=== PATIENT | male | born 1975 | race Two or more races ===

== ENCOUNTER 2020-10-09 08:13 | Emergency (ER) | payer BC ==
[2020-10-09] MEDS ORDERED: Aspirin 81 MG Tab.Chew PO ONE (08:37)
--- NOTE | 2020-10-09 08:37 | EDM.PDOC ---
ED HPI GENERAL MEDICAL PROBLEM - General Chief Complaint: Chest Pain Stated Complaint: CHEST PAIN Time Seen by Provider: 10/09/20 08:30 Source of Information: Reports: Patient History Limitations: Reports: No Limitations - History of Present Illness INITIAL COMMENTS - FREE TEXT/NARRATIVE: 45-year-old male presents to the ED for evaluation of sudden onset of central chest pain which she describes as a pressure squeezing type discomfort while at work this morning. 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 Nothing too heavy. The cart was quite heavy when he was pushing it. He developed central chest squeezing discomfort at that time which caused him to break out in a significant sweats with mild associated nausea without vomiting. Pain is still present which she rates as 2-3 out of 10 central chest with no radiation. He has no history of coronary artery disease. He does have a history of colon cancer diagnosed in March 2019 requiring I believe right hemicolectomy and a temporary ileostomy right lower quadrant which was reversed within the last 6 months. This was carried out by Dr. Gonzalez surgeon at [facility] in [place]. Patient does take a baby aspirin daily. Last 1 was last evening. He denies any cough or sputum production. No fever or chills. No history of asthma. Does have a history of hypertension takes Micardis once daily Onset: Today, Sudden Onset Date: 10/09/20 Onset Time: 07:30 Duration: Minutes:, Improving Location: Reports: Chest (Central chest squeezing pressure discomfort) Quality: Reports: Ache, Pressure, Other (Patient appreciated slightly worse by deep breathing.). Denies: Sharp, Stabbing Severity: Moderate (Initially reported to be 8-9 out of 10. Currently down to a 2-3 out of 10.) Improves with: Reports: Rest Worsens with: Reports: Other (Breathing seems to make it a bit worse.) Context: Denies: Activity, Exercise, Lifting, Sick Contact, Trauma, Other Associated Symptoms: Reports: Chest Pain, Diaphoresis, Shortness of Breath, Weakness (Or diarrhea pheresis associate with development of the pain.). Denies: Confusion, Cough, cough w sputum (See history of present illness), Fever/Chills, Headaches, Loss of Appetite, Malaise, Nausea/Vomiting, Rash (Mild dyspnea.), Seizure, Syncope Treatments TITLE ASSISTANT: Reports: Other (see below) ( Generalized feeling of weakness) Middle Chest Pain Score (Numeric/FACES): 8 - Related Data Allergies Allergy/AdvReac Type Severity Reaction Status Date / Time No Known Allergies Allergy Verified 10/09/20 08:21 Home Meds: Home Meds Allopurinol [Zyloprim] 300 mg PO DAILY 10/09/20 [History] Telmisartan [Micardis] 40 mg PO DAILY 10/09/20 [History] atorvaSTATin [Lipitor] 20 mg PO BEDTIME 10/09/20 [History] Past Medical History Cardiovascular History: Reports: High Cholesterol, Hypertension Oncologic (Cancer) History: Reports: Colon Social & Family History - Tobacco Use Tobacco Use Status *Q: Never Tobacco User - Recreational Drug Use Recreational Drug Use: No - Living Situation & Occupation Living situation: Reports: Occupation: Employed (Self-employed) ED ROS GENERAL - Review of Systems Review Of Systems: See Below Constitutional: Reports: Weakness. Denies: Fever, Chills, Malaise, Fatigue, Decreased Appetite, Weight Loss HEENT: Reports: No Symptoms Respiratory: Reports: Shortness of Breath. Denies: Wheezing, Pleuritic Chest Pain, Cough, Sputum Cardiovascular: Reports: Chest Pain, Blood Pressure Problem (See history of present illness). Denies: Claudication, Dyspnea on Exertion, Edema, Lightheadedness, Orthopnea, Palpitations Endocrine: Reports: Fatigue GI/Abdominal: Reports: No Symptoms, Diarrhea (Occasional diarrhea since right hemicolectomy has been performed.). 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 No: Carotid Bruit, Lymphadenopathy (L), Lymphadenopathy (R) Respiratory/Chest: Lungs Clear, Normal Breath Sounds, No Accessory Muscle Use, Other (Cannot elicit any chest wall tenderness.) Cardiovascular: Normal Peripheral Pulses ( Port-A-Cath right upper anterior chest with surrounding bruising.), Regular Rate, Rhythm, No Edema, No Gallop, No JVD, No Murmur, No Rub Peripheral Pulses: 3+: Carotid (L), Carotid (R), Posterior Tibial (L), Posterior Tibial (R), Dorsalis Pedis (L), Dorsalis Pedis (R) GI/Abdominal: Normal Bowel Sounds, Soft, Non-Tender, No Organomegaly, No Abnorma l Bruit, No Mass, Pelvis Stable, Other (Evidence of a colostomy right mid abdomen or ileostomy that has been secondarily closed. He has developed some keloid scar in this area.) (Male) Exam: No Hernia Back Exam: Normal Inspection, Full Range of Motion. No: CVA Tenderness (L), CVA Tenderness (R) Extremities: Normal Inspection, Normal Range of Motion, Non-Tender, No Pedal Edema Neurological: Alert, Oriented, CN II-XII Intact, Normal Cognition Psychiatric: Anxious Skin Exam: Intact, Normal Color, No Rash, Cool, Diaphoretic (Mildly diaphoretic) #1 Interpretation EKG Date: 10/09/20 Time: 08:20 Rhythm: Other Rate (Beats/Min): 52 [place]: Normal P-Wave: Present QRS: Other (Early R wave transition consider septal hypertrophy pattern) ST-T: Other (Diffuse early repolarization pattern particularly noted in the precordial leads.) QT: Normal EKG Interpretation Comments: Essentially normal ECG Course - Vital Signs Last Recorded V/S: Last Vital Signs Temp 37.1 C 10/09/20 08:19 Pulse 59 L 10/09/20 10:44 Resp 16 10/09/20 10:44 BP 119/73 10/09/20 10:44 Pulse Ox 98 10/09/20 10:44 - Orders/Labs/Meds Orders: Active Orders 24 hr Category Date Time Status Chest 1V Frontal [CR] Stat Exams 10/09/20 08:26 Taken Dextrose 5%-0.9% NaCl [Dextrose 5%-Normal Saline] 1,000 Med 10/09/20 08:45 Active ml IV ASDIRECTED Nitroglycerin/D5W [Nitroglycerin 25 MG/D5W 250 ML] Med 10/09/20 08:45 Active 25 mg in 250 ml IV TITRATE EKG 12 Lead [EK] Stat Ther 10/09/20 08:26 Ordered EKG 12 Lead [EK] Stat Ther 10/09/20 09:11 Ordered EKG 12 Lead [EK] Stat Ther 10/09/20 10:40 Ordered Medication Orders Dextrose/Sodium Chloride (Dextrose 5%-Normal Saline) 1,000 mls @ 100 mls/hr IV ASDIRECTED SURESH Last Admin: 10/09/20 08:59 Dose: 100 mls/hr Documented by: GE Nitroglycerin/Dextrose (Nitroglycerin 25 Mg/D5w 250 Ml) 25 mg in 250 mls @ 6 mls/hr IV TITRATE SURESH; Protocol Last Admin: 10/09/20 09:01 Dose: 10 mcg/min, 6 mls/hr Documented by: GE Labs: Laboratory Tests 10/09/20 10/09/20 10/09/20 Range/Units 08:23 08:23 08:23 WBC 6.27 (4.23-9.07) K/mm3 RBC 5.07 (4.63-6.08) M/mm3 Hgb 14.5 (13.7-17.5) gm/dl Hct 43.7 (40.1-51.0) % MCV 86.2 (79.0-92.2) fl MCH 28.6 (25.7-32.2) pg MCHC 33.2 (32.2-35.5) g/dl RDW Std Deviation 40.1 (35.1-43.9) fL Plt Count 187 (163-337) K/mm3 MPV 9.7 (9.4-12.3) fl Neut % (Auto) 49.5 (34.0-67.9) % Lymph % (Auto) 40.0 (21.8-53.1) % [place] % (Auto) 9.9 (5.3-12.2) % Eos % (Auto) 0.2 L (0.8-7.0) Baso % (Auto) 0.2 (0.1-1.2) % Neut # (Auto) 3.11 (1.78-5.38) K/mm3 Lymph # (Auto) 2.51 (1.32-3.57) K/mm3 [place] # (Auto) 0.62 (0.30-0.82) K/mm3 Eos # (Auto) 0.01 L (0.04-0.54) K/mm3 Baso # (Auto) 0.01 (0.01-0.08) K/mm3 D-Dimer, Quantitative < 0.19 L (0.19-0.50) mg/L Sodium 143 (136-145) mEq/L Potassium 3.4 L (3.5-5.1) mEq/L Chloride 104 (98-107) mEq/L Carbon Dioxide 27 (21-32) mEq/L Anion Gap 15.4 H (5-15) BUN 18 (7-18) mg/dL Creatinine 1.2 (0.7-1.3) mg/dL Est Cr Clr Drug Dosing 68.67 mL/min Estimated GFR (MDRD) > 60 (>60) mL/min BUN/Creatinine Ratio 15.0 (14-18) Glucose 164 H (70-99) mg/dL Calcium 9.1 (8.5-10.1) mg/dL Magnesium 1.8 (1.8-2.4) mg/dL Total Bilirubin 0.8 (0.2-1.0) mg/dL AST 30 (15-37) U/L ALT 28 (16-63) U/L Alkaline Phosphatase 72 (46-116) U/L Troponin I 0.325 H* (0.00-0.056) ng/mL Total Protein 7.6 (6.4-8.2) g/dl Albumin 3.9 (3.4-5.0) g/dl Globulin 3.7 gm/dL Albumin/Globulin Ratio 1.1 (1-2) SARS-CoV-2 RNA (RIANA) (NEGATIVE) 10/09/20 Range/Units 09:35 WBC (4.23-9.07) K/mm3 RBC (4.63-6.08) M/mm3 Hgb (13.7-17.5) gm/dl Hct (40.1-51.0) % MCV (79.0-92.2) fl MCH (25.7-32.2) pg MCHC (32.2-35.5) g/dl RDW Std Deviation (35.1-43.9) fL Plt Count (163-337) K/mm3 MPV (9.4-12.3) fl Neut % (Auto) (34.0-67.9) % Lymph % (Auto) (21.8-53.1) % [place] % (Auto) (5.3-12.2) % Eos % (Auto) (0.8-7.0) Baso % (Auto) (0.1-1.2) % Neut # (Auto) (1.78-5.38) K/mm3 Lymph # (Auto) (1.32-3.57) K/mm3 [place] # (Auto) (0.30-0.82) K/mm3 Eos # (Auto) (0.04-0.54) K/mm3 Baso # (Auto) (0.01-0.08) K/mm3 D-Dimer, Quantitative (0.19-0.50) mg/L Sodium (136-145) mEq/L Potassium (3.5-5.1) mEq/L Chloride (98-107) mEq/L Carbon Dioxide (21-32) mEq/L Anion Gap (5-15) BUN (7-18) mg/dL Creatinine (0.7-1.3) mg/dL Est Cr Clr Drug Dosing mL/min Estimated GFR (MDRD) (>60) mL/min BUN/Creatinine Ratio (14-18) Glucose (70-99) mg/dL Calcium (8.5-10.1) mg/dL Magnesium (1.8-2.4) mg/dL Total Bilirubin (0.2-1.0) mg/dL AST (15-37) U/L ALT (16-63) U/L Alkaline Phosphatase (46-116) U/L Troponin I (0.00-0.056) ng/mL Total Protein (6.4-8.2) g/dl Albumin (3.4-5.0) g/dl Globulin gm/dL Albumin/Globulin Ratio (1-2) SARS-CoV-2 RNA (RIANA) Negative (NEGATIVE) Meds: Medications Generic Name Dose Route Start Last Admin Trade Name Freq PRN Reason Stop Dose Admin Dextrose/Sodium Chloride 1,000 mls @ 100 mls/hr 10/09/20 08:45 10/09/20 08:59 Dextrose 5%-Normal Saline IV 100 mls/hr ASDIRECTED SURESH Administration Nitroglycerin/Dextrose 25 mg in 250 mls @ 6 mls/hr 10/09/20 08:45 10/09/20 09:01 Nitroglycerin 25 Mg/D5w 250 Ml IV 10 mcg/min TITRATE SURESH 6 mls/hr Administration Protocol 10 MCG/MIN Discontinued Medications Generic Name Dose Route Start Last Admin Trade Name Freq PRN Reason Stop Dose Admin Aspirin 324 mg 10/09/20 08:37 10/09/20 08:58 Aspirin 81 Mg Tab.Chew PO 10/09/20 08:38 324 mg ONETIME ONE Administration Clopidogrel Bisulfate 300 mg 10/09/20 09:27 10/09/20 09:47 Clopidogrel 75 Mg Tab PO 10/09/20 09:28 300 mg ONETIME ONE Administration Heparin Sodium (Porcine) 5,000 units 10/09/20 09:27 10/09/20 09:47 Heparin Sodium 5,000 Units/Ml Vial IVPUSH 10/09/20 09:28 5,000 units ONETIME ONE Administration Hydromorphone HCl 0.5 mg 10/09/20 08:38 10/09/20 08:59 Hydromorphone 0.5 Mg/0.5 Ml Syringe IVPUSH 10/09/20 08:39 0.5 mg ONETIME ONE Administration Ondansetron HCl 4 mg 10/09/20 08:38 10/09/20 08:59 Ondansetron 4 Mg/2 Ml Sdv IVPUSH 10/09/20 08:39 4 mg ONETIME ONE Administration - Radiology Interpretation Free Text/Narrative:: 45-year-old male of I believe of [place] decent presents to the ED for evaluation of sudden onset of central chest pressure squeezing discomfort 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 He denies cough sputum production or fever or chills. No known history of co ronary disease. Pain did cause him to break out in a sweat and associated dyspnea. He states the pain initially was 8-10 out of 10. It is currently a 2 out of 10. Exam reveals him to be cool and clammy to touch. No chest wall pain elicited. Port-A-Cath right upper anterior chest. Lungs are clear to auscultate percussion. Benign abdominal exam. No evidence of DVT in his lower extremities with history of cancer of the colon diagnosed in 2019. Plan chest x-ray to be done. ECG done by triage nurse does not show any signs of acute ischemic change. Reveals a sinus bradycardia at 52/min. Cardiac markers will be ordered with other routine labs. Given aspirin 324 mg chewed and will be started nitroglycerin drip at 10 mcg/min. - Re-Assessments/Exams Free Text/Narrative Re-Assessment/Exam: 10/09/20 09:10 Total white count is 6.27 with 49.5% neutrophils on the auto differential. Hemoglobin 14.5 with hematocrit of 43.7. Platelet count is 187 ,000. Sodium is 04/22/1944 with a potassium slightly low at 3.4. Chloride 104 the bicarb of 27. Anion gap is 15.4. BUN is 18 with a creatinine of 1.2. GFR is greater than 60. Glucose slightly elevated 164. Calcium 9.1 with a magnesium of 1.8. Liver function normal. Troponin I is elevated at 0.325 indicating acute myocardial infarction. Total protein is 7.6 with an albumin fraction of 3.9. Chest x-ray done portably reveals normal cardiac silhouette and mediastinum. Lung parenchyma are clear. No pleural effusion no pneumothorax. Port-A-Cath appreciated right upper anterior chest. COVID-19 screen will now be obtained. He will be given heparin 5000 unit bolus and then 1000 units an hour. Also given Plavix 300 mg p.o. He rates his pain as 1 or less on a pretty well gone on reassessment. 10/09/20 09:34: I have spoken to the 1 call service at [facility] in [place] and spoken with Dr. Berrios--on-call carpet floor layer apprentice and he is excepted care of this patient. He wishes him to be taken to the emergency department at [facility] in [place]. Dr. Cortés from the department of emergency medicine has accepted care of there. They will then do serial ECGs to see if he is evolving into a acute STEMI any particular area of concern in the inferior wall with slight ST segment elevation in V2 V3 at present. We are currently looking for transportation to [place] since our ambulance is already on its way to [place] with another case. 10/09/20 10:42 We are still awaiting transport by ambulance service from [facility] or [facility]. They are putting together a transfer team since no other ambulances are available and helicopter would be 4 hours before they could transport him. He remains pain-free at this time. A third ECG will be ordered at this time to see if he has an evolving STEMI. 10/09/20 10:55 [facility] ambulance is here in loading the patient at present to provide transport to [place]. Done is unchanged from the second ECG with minimal ST segment elevation in leads II and aVF. There is an acute early repolarization pattern and be 2 and V3. Patient remains pain-free at this time. Departure - Departure Time of Disposition: 10:55 Disposition: DC/Tfer to Acute Hospital 02 Reason for Transfer *Q: Other Condition: Fair Clinical Impression: Acute coronary syndrome with high troponin Referrals: Nicole Franco MD [Primary Care Provider] - Forms: ED Department Discharge Additional Instructions: Patient transferred to [place] per [facility] ambulance service due to unavailability of [place] and [place] ambulance services Sepsis Event Note (ED) - Evaluation Sepsis Screening Result: No Definite Risk - Focused Exam Vital Signs: Vital Signs Temp Pulse Resp BP Pulse Ox 10/09/20 10:44 59 L 16 119/73 98 10/09/20 09:45 53 L 16 123/77 100 10/09/20 08:19 37.1 C 55 L 18 151/78 H 99 - My Orders Last 24 Hours: My Active Orders 10/09/20 08:26 Chest 1V Frontal [CR] Stat EKG 12 Lead [EK] Stat 10/09/20 08:45 Dextrose 5%-0.9% NaCl [Dextrose 5%-Normal Saline] 1,000 ml IV ASDIRECTED Nitroglycerin/D5W [Nitroglycerin 25 MG/D5W 250 ML] 25 mg in 250 ml IV TITRATE 10/09/20 09:11 EKG 12 Lead [EK] Stat 10/09/20 10:40 EKG 12 Lead [EK] Stat - Assessment/Plan Last 24 Hours: My Active Orders 10/09/20 08:26 Chest 1V Frontal [CR] Stat EKG 12 Lead [EK] Stat 10/09/20 08:45 Dextrose 5%-0.9% NaCl [Dextrose 5%-Normal Saline] 1,000 ml IV ASDIRECTED Nitroglycerin/D5W [Nitroglycerin 25 MG/D5W 250 ML] 25 mg in 250 ml IV TITRATE 10/09/20 09:11 EKG 12 Lead [EK] Stat 10/09/20 10:40 EKG 12 Lead [EK] Stat
[2020-10-09] MEDS ORDERED: HYDROmorphone 0.5 MG/0.5 ML Syringe IVPUSH ONE (08:38)
[2020-10-09] MEDS ORDERED: Ondansetron 4 MG/2 ML SDV IVPUSH ONE (08:38)
[2020-10-09] MEDS ORDERED: Dextrose 5%-0.9% NaCl 1,000 ML IV SCH (08:45)
[2020-10-09] MEDS ORDERED: Nitroglycerin/D5W 25 MG/250 ML BOTTLE IV SCH (08:45)
[2020-10-09] MEDS ORDERED: Clopidogrel 75 MG Tab PO ONE (09:27)
[2020-10-09] MEDS ORDERED: Heparin Sodium 5,000 Units/ML Vial IVPUSH ONE (09:27)
--- NOTE | 2020-10-10 07:36 | CR ---
Chest: Frontal view of the chest was obtained. Comparison: No prior chest imaging is available. Right-sided infusion catheter is seen which is satisfactory in position by radiographic exam. Lungs are clear with no acute parenchymal change. No acute osseous abnormality is appreciated. Impression: 1. Right-sided infusion catheter. 2. Nothing acute is seen on frontal chest x-ray. Diagnostic code #2
== END 2020-10-09 10:52 ==
LOC: JD.ED 08:13
DX: I24.9 Acute ischemic heart disease, unspecified (principal); R79.89 Other specified abnormal findings of blood chemistry; E78.00 Pure hypercholesterolemia, unspecified; I10 Essential (primary) hypertension; Z79.899 Other long term (current) drug therapy; Z20.822 Contact with and (suspected) exposure to COVID-19
CPT/HCPCS: 36415; 71045; 80053; 83735; 84484; 85025; 85379; 87635; 93005; 96365; 96366; 96375; 99285; A9270; J1170; J1644; J2405; J3490; J7042; 93010; U0002